=== PATIENT | male | born 1950 | race Caucasian/White ===

== ENCOUNTER 2016-12-22 14:03 | Emergency (ER) | payer OTHER ==
[~2016-12-22 14:03] MED LIST: COZAAR; KEFLEX500 MG PO; KETOPROFEN PO; ULTRAM; VICODIN 5/500 T1 TAB PO; ZOCOR
== END 2016-12-22 15:46 | disposition home or self-care (01) ==
LOC: CED 14:03 → CFTX 14:03
DX: S61.213A Laceration without foreign body of left middle finger without damage to nail, initial encounter (principal); I10 Essential (primary) hypertension; M10.9 Gout, unspecified; W27.0XXA Contact with workbench tool, initial encounter; Y92.009 Unspecified place in unspecified non-institutional (private) residence as the place of occurrence of the external cause
CPT/HCPCS: 12001; 99283